=== PATIENT | female | born 1955 | race Caucasian/White ===

== ENCOUNTER 2024-04-20 15:11 | Emergency (ER) | payer BC, OTHER, SELFPAY ==
[2024-04-20 15:43] VITALS: BP 150/87; PULSE 87; RESP 18; TEMP 37; O2SAT 98; BMI 27.5
--- NOTE | 2024-04-20 15:51 | XR_ITS ---
Examination: CT thoracic spine, without contrast. 2-D sagittal reconstructions. 2-D coronal reconstructions. 3-D reconstructions. Date and time of exam:April 20, 2024 1606 hours INDICATIONS: Back pain after lifting heavy object 2 weeks ago CTDI: vol (mGy):33.1 DLP: (mGycm):1108 Technique: Multiple 1.25 mm axial sections of the thoracic spine without intravenous contrast have been obtained. 2-D sagittal and coronal reconstructions have been obtained. 3-D reconstructions have been obtained. Low dose protocols were performed. One or more of the following dose reduction techniques were used; automated exposure control, adjustment of the mA and/or KV according to patient size, use of iterative reconstruction technique. Findings: Adequate alignment thoracic vertebral bodies No thoracic fracture Multiple scattered osteolytic areas, subcentimeter in thoracic vertebral bodies including T1, T2, T3, T4, T5, T6 Mild diffuse thoracic disc narrowing 16mm pulmonary nodule left upper lobe, axial image 74 IMPRESSION: Diffuse thoracic degenerative disc disease Multiple scattered osteolytic areas in thoracic vertebral bodies, recommend MRI thoracic spine follow-up pre and postcontrast to exclude osseous metastatic disease 16mm noncalcified pulmonary nodule left upper lobe, differential would fluid lung carcinoma, pulmonary nodular metastatic disease, recommend CT chest without contrast follow-up
--- NOTE | 2024-04-20 15:51 | XR_ITS ---
Examination: CT cervical spine without contrast 2-D sagittal reconstructions 2-D coronal reconstructions 3-D reconstructions. Exam date and time:April 20, 2024 1606 hours INDICATIONS: Lifting injury to the neck 2 weeks ago with neck pain radiating down the back, history chronic neck pain and cervical fusion surgery CTDI:vol (mGy) 12.9 DLP: (mGycm) 277 Technique: Multiple 2 mm axial sections of the cervical spine have been obtained. The coronal and sagittal reconstructions have been obtained. 3-D reconstructions have been obtained. Low dose protocols were performed. One or more of the following dose reduction techniques were used; automated exposure control, adjustment of the mA and/or KV according to patient size, use of iterative reconstruction technique. Findings: Axial sections demonstrate intact base of the skull. C1 exhibit satisfactory relationship to the odontoid. No acute cervical vertebral body fracture seen. Alignment posterior spinous processes satisfactory. Cervical fusion C3-C6 with anatomic alignment 2 mm anterolisthesis C6 on C7 No cervical fracture Intact odontoid Impression: No acute cervical fracture. Cervical fusion C3-C6 with anatomic alignment Anterolisthesis C6 on C7, 2 mm If pain persists, consider MRI cervical spine without contrast follow-up
--- NOTE | 2024-04-20 17:06 | XR_ITS ---
Examination: CT chest, without intravenous contrast. Sagittal and coronal 2-D reconstructions. Exam date and time: April 20, 2024 1833 hours INDICATIONS: 16mm pulmonary nodule left upper lobe on CT thoracic spine study today CTDI:vol (mGy) 11.2 DLP: (mGycm) 359 Technique: Multiple 3.0 mm axial sections of the chest to been obtained. Bone and lung density settings are obtained. Sagittal and coronal 2-D reconstructions have been obtained. Low dose protocols were performed. One or more of the following dose reduction techniques were used; automated exposure control, adjustment of the mA and/or KV according to patient size, use of iterative reconstruction technique. Findings: No thoracic aortic aneurysmal dilatation Pulmonary artery segments are not enlarged No paratracheal tracheobronchial or bronchopulmonary adenopathy At least 16 bilateral pulmonary nodules, the largest in the posterior left lung 14 mm and the lingular segment 11 mm No lobar pneumonia or pulmonary edema Axial image 75 demonstrates 14 mm focal lateral right breast asymmetry No visualized liver or splenic lesion No pancreatic or adrenal mass IMPRESSION: At least 16 bilateral pulmonary nodules consistent with pulmonary nodular metastatic disease 14 mm nodule lateral right breast, recommend diagnostic mammography bilateral breast sonography follow-up
--- NOTE | 2024-04-20 17:06 | PD.EDRME ---
Rapid Medical Screening Exam RME Arrival date/time: 04/20/24 15:11 68-year-old female with previous cervical neck fusion presents to the emergency department complaints of neck pain and back pain Chief Complaint: Back Pain/Injury Time Seen by Provider: 04/20/24 15:18 Vital signs: Vital Signs Temperature 98.6 F 04/20/24 15:43 Pulse Rate 87 04/20/24 15:43 Respiratory Rate 18 04/20/24 15:43 Blood Pressure 150/87 H 04/20/24 15:43 Pulse Oximetry (%) 98 04/20/24 15:43 Oxygen Delivery Method Room Air 04/20/24 15:43
[2024-04-20 19:30] VITALS: BP 178/92; PULSE 76; RESP 16; TEMP 36.6; O2SAT 97
--- NOTE | 2024-04-20 19:45 | PD.EDBACK ---
ED Back Injury Pain RME/HPI General Chief Complaint: Back Pain/Injury Stated Complaint: Back pain radiates to left arm Time Seen by Provider: 04/20/24 15:18 Arrival date/time: 04/20/24 15:11 RME / HPI RME / HPI Narrative: 68-year-old female patient with no significant history of malignancy in the past, came in for evaluation regarding worsening neck pain, worsening upper back pain, for several weeks, getting worst. Patient was seen by PCP, was given pain medication which according to the patient is not really working. Patient denies any weight loss. Denies any cough denies any fever denies any other complaints patient is ambulatory. Denies any trauma or falls lately. Related Data Home Medications ?Medication ?Instructions ?Recorded ?Confirmed Cyclobenzaprine * (FLEXERIL *) 10 mg PO BIDPRN PRN MUSCLE CRAMPS 07/16/13 #0 tabs Fluticasone Propionate NASAL * 2 spry NASAL BID #0 spry 07/16/13 (FLONASE *) fluoxetine 40 mg capsule (Prozac) 40 mg PO HS #0 caps 07/16/13 metoprolol succinate 100 mg 100 mg PO HS ##0 07/16/13 tablet,extended release 24 hr (Toprol XL) montelukast 10 mg tablet 10 mg PO HS #0 tabs 07/16/13 (Singulair) Albuterol Sulfate HFA (INHALER) 2 puff inhalation Q6HR PRN 04/06/14 (PROVENTIL HFA (INHALER)) WHEEZING #0 inhalations Hydrocodone/Acetaminophen (VICODIN 1 tab PO Q6HR PRN PAIN #0 tabs 04/06/14 5/300) Trazodone * (DESYREL *) 150 mg PO HS #0 tabs 04/06/14 alprazolam 0.25 mg tablet 0.25 mg PO HS #0 tabs 04/06/14 pramipexole 1 mg tablet (Mirapex) 1 mg PO HS #0 tabs 04/06/14 milnacipran 50 mg tablet (Savella) 50 mg PO BID #0 tabs 07/01/15 Previous Rx's ?Medication ?Instructions ?Recorded famotidine 20 mg tablet (Pepcid) 20 mg PO BID #14 tabs 04/20/24 tramadol 37.5 mg-acetaminophen 325 1 tab PO Q4H PRN pain #21 tabs 04/20/24 mg tablet Allergies Allergy/AdvReac Type Severity Reaction Status Date / Time codeine Allergy Mild GI UPSET Verified 05/14/22 16:22 Review of Systems Review of Systems Narrative Review of Systems: Review of system reviewed and within normal limits except mentioned in HPI ED Exam Narrative Physical exam: VITAL SIGNS: Reviewed. GENERAL APPEARANCE: Alert and interactive, follows commands, no acute distress, HEAD AND FACE: Non-traumatic. ENT: PERRL, pink conjunctivitis, eyelid no trauma, Mucous membrane moist. NECK: Supple, posterior neck tenderness, no nuchal rigidity. CHEST: No tenderness, no crepitus, no paradoxical movement, no retractions. LUNGS: Clear, well ventilated, symmetric, no rales, no wheezing, no ronchi, no stridor, good breath sounds bilaterally. HEART: Regular rate, regular rhythm, no murmur, no gallops. ABDOMEN: Soft, positive bowel sounds, nondistended, no guarding, nontender, no rebound, no masses, RECTAL: Deferred. GENITAL: Deferred. NEUROLOGICAL: Gross motor function intact sensory function intact, Appropriate for age. MUSCULOSKELETAL: Upper back tenderness, full range of motion. EXTREMITIES: Nontender, full range of motion. SKIN: Color pink, dry, no rash, no lacerations, no abrasions, no contusions. LYMPHATICS: Deferred. Course Quality Measures none Orders Category Date Time Status CT cervical spine wo con Stat Exams 04/20/24 15:[address] chest wo con Stat Exams 04/20/24 17:[address] thoracic spine wo con Stat Exams 04/20/24 15:51 Completed Ketorolac Inj [Toradol Inj] Med 04/20/24 19:38 Discontinued 30 mg IM X1 ONE Vital Signs Vital signs: Vital Signs Temperature 98.6 F 04/20/24 15:43 Pulse Rate 87 04/20/24 15:43 Respiratory Rate 18 04/20/24 15:43 Blood Pressure 150/87 H 04/20/24 15:43 Pulse Oximetry (%) 98 04/20/24 15:43 Oxygen Delivery Method Room Air 04/20/24 15:43 Back Pain / Injury MDM Narrative MDM Narrative:: CT scan of the cervical spine, showed No acute cervical fracture. Cervical fusion C3-C6 with anatomic alignment Anterolisthesis C6 on C7, 2 mm If pain persists, consider MRI cervical spine without contrast follow-up CT scan of the thoracic spine Diffuse thoracic degenerative disc disease Multiple scattered osteolytic areas in thoracic vertebral bodies, recommend MRI thoracic spine follow-up pre and postcontrast to exclude osseous metastatic disease 16mm noncalcified pulmonary nodule left upper lobe, differential would fluid lung carcinoma, pulmonary nodular metastatic disease, recommend CT chest without contrast follow-up CT scan of the chest showed At least 16 bilateral pulmonary nodules consistent with pulmonary nodular metastatic disease 14 mm nodule lateral right breast, recommend diagnostic mammography bilateral breast sonography follow-up Results discussed with the patient, patient was advised to closely follow-up with PCP this coming Wednesday and asked for referral to cancer specialist MD to rule out malignancy. Patient agrees with the plan. Patient data External records reviewed:: None Clinical information provided by:: patient Social determinants that could affect healthcare access:: none Patient has the following chronic illnesses:: Hypertension How is presenting disease/condition affected by chronic disease/condition?: exacerbated by Evaluation data The following diagnostics were reviewed and interpreted by me:: lab results and radiology exam(s) Lab and/or radiology exams considered but not ordered:: None Interpretation Summary: See results above in the MDM Medications / Prescriptions Medications or Prescriptions considered but not ordered:: none Medication administrations:: Medication Administration History Discontinued Medications Ketorolac Tromethamine (Ketorolac Inj 60 Mg/2 Ml Vial) 30 mg IM X1 ONE Stop: 04/20/24 19:39 Toradol IM Consultations Consultation(s) initiated? (list below): No Diagnosis Differential diagnosis back pain/injury: lumbar radiculopathy, sciatica, thoracic back pain and other Most likely diagnosis given after review of the tests above:: Upper back pain, multiple osteolytic lesion of the vertebral of the thoracic spine, which could be metastatic. Admission Indicated Admission indicated?: not indicated Admission Request Was there a request for admission?: No Disposition Plan Disposition Plan: Discharge Discharge Attestation Discharge Attestation: The patient was given an opportunity to ask questions and understood the discharge instructions. Discharge instructions specifically effects, indications for sooner follow up or return to the emergency department, and the expected course of current diagnosis. Patient condition: Stable Discharge Plan Plan Patient Disposition: HOME (Self Care) Disposition Comment: stable Prescriptions/Referrals Prescriptions/Med Rec: New tramadol-acetaminophen 37.5-325 mg tablet 1 tab PO Q4H PRN (Reason: pain) Qty: 21 0RF famotidine [Pepcid] 20 mg tablet 20 mg PO BID Qty: 14 0RF No Action fluoxetine [Prozac] 40 MG capsule 40 mg PO HS Qty: 0 metoprolol succinate [Toprol XL] 100 MG tablet extended release 24 hr 100 mg PO HS Qty: 0 montelukast [Singulair] 10 MG tablet 10 mg PO HS Qty: 0 Cyclobenzaprine * (FLEXERIL *) 5 MG tablet 10 mg PO BIDPRN PRN (Reason: MUSCLE CRAMPS) Qty: 0 Fluticasone Propionate NASAL * (FLONASE *) 160 SPRAY/BTL SPRAY 2 spry NASAL BID Qty: 0 pramipexole [Mirapex] 1 MG tablet 1 mg PO HS Qty: 0 alprazolam 0.25 MG tablet 0.25 mg PO HS Qty: 0 Hydrocodone/Acetaminophen (VICODIN 5/300) 1 EACH tablet 1 tab PO Q6HR PRN (Reason: PAIN) Qty: 0 Trazodone * (DESYREL *) 150 MG tablet 150 mg PO HS Qty: 0 Albuterol Sulfate HFA (INHALER) (PROVENTIL HFA (INHALER)) 8.5 GM HFA.AER.AD 2 puff Inhalation Q6HR PRN (Reason: WHEEZING) Qty: 0 milnacipran [Savella] 50 MG tablet 50 mg PO BID Qty: 0 Referrals: Adela Guevara MD [Primary Care Provider] - In 1 week Problem List Clinical Impression: Back pain, thoracic Patient/Caregiver Discharge Instructions Discharge Activity: activity as tolerated Education Materials: ED Back Care Tips Additional Instructions: Thank you for the opportunity for serving you today. You are stable for discharged . You are advised to: Follow-up with your PCP this coming Wednesday and as per referral to cancer specialist for outpatient workup to rule out malignancy which could be the reason for your back pain Return to ED for worsening of symptoms Increase oral fluids Take medication as prescribed Print Language: Belarusian Stand Alone Forms: Kathryn Award Info., Patient Portal Info Letter PA/MITUL Supervising Physician PA/MITUL Supervising Physician: MD Mirna
[2024-04-20] MEDS: KETOROLAC INJ 60 MG/2 ML VIAL 30 MG IM (19:59)
== END 2024-04-20 20:03 | disposition home or self-care (01) ==
PROVIDERS: Emergency Provider Emergency Medicine; PCP Internal Medicine
DX: M51.34 Other intervertebral disc degeneration, thoracic region (principal); M43.12 Spondylolisthesis, cervical region; R91.1 Solitary pulmonary nodule; N63.20 Unspecified lump in the left breast, unspecified quadrant
CPT/HCPCS: 71250; 72125; 72128; 96372; 99284; J1885

== ENCOUNTER → 2024-04-26 | Outpatient (CLI) | payer BC, OTHER, SELFPAY ==
[2024-04-26 10:25] LABS: Basophils % (Auto) 1 % (0-2.5); Eosinophils # (Auto) 0.1 Thou/mm3 (0.0-0.5); Eosinophils % (Auto) 2 % (0-10); Hematocrit 41.2 % (36.0-46.0); Hemoglobin 13.5 g/dL (12.0-16.0); Immature Granulocytes % (Auto) 0 % (0-0); Immature Granulocytes Auto 0.01 Thou/mm3 (0.00-0.00); Lymphocytes # (Auto) 1.7 Thou/mm3 (1.0-4.8); Lymphocytes % (Auto) 38 % (10-50); Mean Corpuscular HGB Conc 32.8 g/dl (31.0-37.0); Mean Corpuscular Hemoglobin 28.1 pg (25.0-35.0); Mean Corpuscular Volume 86 fL (80-100); Monocytes # (Auto) 0.5 Thou/mm3 (0.0-0.8); Monocytes % (Auto) 11 % (0-12); Neutrophils # (Auto) 2.1 Thou/mm3 (1.8-7.7); Neutrophils % (Auto) 48 % (37-80); Nucleated Red Blood Cell % 0 /100 WBC (0); Platelet Count 194 Thou/mm3 (140-440); RDW Standard Deviation 41.1 fL (36.4-46.3); White Blood Count 4.4 Thou/mm3 (3.6-11.0)
[2024-04-26 11:21] LABS: CA 15-3 4.3 U/mL (<32.4); Carcinoembryonic Antigen 1.6 ng/mL (0.0-5.0)
== END | disposition home or self-care (01) ==
PROVIDERS: PCP Internal Medicine; Referring Provider Internal Medicine; Visit Provider Internal Medicine
DX: R91.8 Other nonspecific abnormal finding of lung field (principal)
CPT/HCPCS: 36415; 82378; 85025; 86300; 86304

== ENCOUNTER → 2024-04-28 | Outpatient (CLI) | payer BC, OTHER, SELFPAY ==
[2024-04-28 12:23] LABS: Alanine Aminotransferase 8 U/L (10-49); Albumin, Serum 4.5 gm/dL (3.4-4.8); Albumin/Globulin Ratio 2.1 (1.2-2.2); Alkaline Phosphatase 82 U/L (46-116); Anion Gap 4 (7-16); Aspartate Amino Transferase < 10 U/L (0-34); BUN/Creatinine Ratio 11 Ratio (12-20); Bilirubin,Total 0.7 mg/dL (0.3-1.2); Blood Urea Nitrogen 11 mg/dL (9-23); Carbon Dioxide 29.6 mMol/L (20.0-31.0); Chloride 105 mMol/L (98-107); Globulin 2.1 gm/dL (2.3-3.5); Glucose 96 mg/dL (74-106); Osmolality,Calculated 276 (275-295); Potassium 4.1 mMol/L (3.4-5.1); Sodium 139 mMol/L (136-145); Total Protein 6.6 gm/dL (5.7-8.2); eGFR > 60 See Note
== END | disposition home or self-care (01) ==
PROVIDERS: PCP Internal Medicine; Referring Provider Internal Medicine; Visit Provider Internal Medicine
DX: R91.8 Other nonspecific abnormal finding of lung field (principal)
CPT/HCPCS: 36415; 80053

== ENCOUNTER → 2024-05-22 | Outpatient (CLI) | payer BC, OTHER, SELFPAY ==
[2024-05-22 14:11] LABS: Cocci Serology, IgM Negative (Negative)
[2024-05-22 14:15] LABS: Glucose Estimated Average 103 mg/dL (80-131); Hemoglobin A1C 5.2 % Hgb (4.8-6.0)
[2024-05-24 14:35] LABS: Cocci Serology, IgG Negative (Negative)
== END | disposition home or self-care (01) ==
LOC: COPL 11:46
PROVIDERS: PCP Internal Medicine; Referring Provider Internal Medicine; Visit Provider Internal Medicine
DX: E11.65 Type 2 diabetes mellitus with hyperglycemia (principal)
CPT/HCPCS: 36415; 83036; 86331; 86635

== ENCOUNTER → 2024-06-05 | Outpatient (CLI) | payer OTHER, BC, SELFPAY ==
[2024-06-02 14:44] VITALS: BMI 25.4
[2024-06-02 15:21] LABS: Basophils % (Auto) 0 % (0-2.5); Eosinophils % (Auto) 0 % (0-10); Hematocrit 38.4 % (36.0-46.0); Hemoglobin 12.9 g/dL (12.0-16.0); Immature Granulocytes % (Auto) 0 % (0-0); Immature Granulocytes Auto 0.01 Thou/mm3 (0.00-0.00); Lymphocytes # (Auto) 1.8 Thou/mm3 (1.0-4.8); Lymphocytes % (Auto) 37 % (10-50); Mean Corpuscular HGB Conc 33.6 g/dl (31.0-37.0); Mean Corpuscular Hemoglobin 28.1 pg (25.0-35.0); Mean Corpuscular Volume 84 fL (80-100); Monocytes # (Auto) 0.4 Thou/mm3 (0.0-0.8); Monocytes % (Auto) 7 % (0-12); Neutrophils # (Auto) 2.7 Thou/mm3 (1.8-7.7); Neutrophils % (Auto) 55 % (37-80); Nucleated Red Blood Cell % 0 /100 WBC (0); Platelet Count 212 Thou/mm3 (140-440); Red Blood Count 4.59 Miln/mm3 (4.00-5.20); White Blood Count 4.9 Thou/mm3 (3.6-11.0)
[2024-06-02 15:33] LABS: Blood Urea Nitrogen 15 mg/dL (9-23); Creatinine (Component) 0.8 mg/dL (0.6-1.3); Estimated Creatinine Clearance 53.3 mL/min (>60); eGFR > 60 See Note
[2024-06-02 15:45] LABS: Partial Thromboplastin Time 24.8 Seconds (22.0-36.0); Prothrombin Time 10.7 Seconds (9.0-12.2)
[2024-06-05 08:00] VITALS: BP 143/80; PULSE 92; RESP 16; TEMP 36.6; O2SAT 100
--- NOTE | 2024-06-05 08:25 | PC.NURSE ---
patient is very nervous and moaning, i am waiting on MD to arrive to see if he would like to give her anything for her anxiety. i have tried talking to the patient to calm her down but that doesnt seem to help as much
--- NOTE | 2024-06-05 09:03 | PC.NURSE ---
Rishabh Victor came to [facility] to talk to patient and to let them know that the procedure is too highrisk to perform. IV was taken out and patient belongings paper was signed. No medications where given
== END | disposition home or self-care (01) ==
LOC: SIRX 07:45
PROVIDERS: Radiology Diagnostic Radiology; PCP Internal Medicine; Referring Provider Internal Medicine; Visit Provider Internal Medicine
DX: Z53.8 Procedure and treatment not carried out for other reasons (principal); Z01.812 Encounter for preprocedural laboratory examination
CPT/HCPCS: 36415; 82565; 84520; 85025; 85610; 85730